=== PATIENT | female | born 1970 | race African-American/Black ===

== ENCOUNTER 2017-10-04 23:31 | Emergency (ER) | payer SELFPAY ==
[~2017-10-04] VITALS: Ht 167.6 cm; Wt 90.3 kg
== END 2017-10-05 01:02 | disposition home or self-care (01) ==
LOC: FSED 23:31
DX: S30.1XXA Contusion of abdominal wall, initial encounter (principal); S93.612A Sprain of tarsal ligament of left foot, initial encounter; W18.39XA Other fall on same level, initial encounter; Y93.01 Activity, walking, marching and hiking
CPT/HCPCS: 71045; 74018; 81025; 99283